=== PATIENT | female | born 1990 | race African-American/Black ===

== ENCOUNTER 2018-03-23 01:48 | Emergency (ER) | payer SELFPAY ==
--- NOTE | 2018-03-23 02:05 | PDOC ---
Medical Decision Making - Medical Decision Making 03/23/18 02:05 Richie presents to the ER intoxicated She is begging for her mother to be called Pt family members called We are awaiting mother to call back for pt pick out hand If she is unable to pick this patient up, she will have to stay in the ER until no longer intoxicated Pt seen by Midlevel Provider under my direct supervision Pt interviewed and examined I agree with plan as outlined by Midlevel Provider *DC/Admit/Observation/Transfer Diagnosis at time of Disposition: Alcohol intoxication - Discharge Dispostion Disposition: HOME Condition at time of disposition: Fair - Referrals Referrals: bJ Mosher MD [Staff Physician] - - Patient Instructions Printed Discharge Instructions: DI for Alcohol Abuse Additional Instructions: Increase fluids Take Tylenol alternating with Motrin as needed Follow-up with your physician this week Return back to the ER for any concerns - Post Discharge Activity
--- NOTE | 2018-03-23 02:07 | PDOC ---
History of Present Illness - General History Source: Patient Exam Limitations: No Limitations - History of Present Illness Initial Comments: 03/23/18 02:07 Best Contact:Griffin/brother [phone], Mother/[phone] PCP:"I don't have one" Pmhx: denies Pshx: denies Allergies: NKDA Social Hx: Cigarettes/ denies Alcohol/ [facility] Drugs/ Marijuana LMP: "Im not " 27 yo Female biba([facility]) after being intoxicated at a republican in the [place] and insists on coming here to [facility]. Patient denies fever, chills, nausea/ vomiting, headache, dizziness, lightheadedness, facial pains, neck pains, back pains, chest pain, shortness of breath, abdominal pains, flank pains, urinary symptoms, extremity numbness or tingling sensation. Patient is loud and boisterous and insists on being picked up by her brother or mother. Patient is alert and oriented. Patient refuses blood work, IV fluids. Patient states she only insisted that [facility] bring her to [facility] emergency department because she lives a couple of blocks away and it's easier for her to go home as opposed to calling a cab going to the local hospital in the [place]. Patient states she does not want treatment. She only wanted a ride closer to her home with EMS. <Rachana Ballesteros - Last Filed: 03/23/18 03:44> <Bronwyn Traylor - Last Filed: 03/23/18 12:46> - General Chief Complaint: Alcohol intoxication Stated Complaint: INTOXICATION Time Seen by Provider: 03/23/18 01:55 Past History - Past Medical History Anemia: Yes Asthma: Yes (no hx hospitalizations for asthma) Cancer: No Cardiac Disorders: No CVA: No COPD: No CHF: No Dementia: No Diabetes: No GI Disorders: No Disorders: No HTN: No Hypercholesterolemia: No Liver Disease: No Seizures: No Thyroid Disease: No - Suicide/Smoking/Psychosocial Hx Smoking History: Current every day smoker Have you smoked in the past 12 months: Yes Number of Cigarettes Smoked Daily: 5 Hx Alcohol Use: Yes Drug/Substance Use Hx: Yes <Rachana Ballesteros - Last Filed: 03/23/18 03:44> <Bronwyn Traylor - Last Filed: 03/23/18 12:46> - Past Medical History Allergies/Adverse Reactions: Allergies Allergy/AdvReac Type Severity Reaction Status Date / Time Sulfa (Sulfonamide Allergy Verified 03/23/18 11:28 Antibiotics) Home Medications: Ambulatory Orders NK [No Known Home Medication] 03/23/18 Review of Systems - Review of Systems Able to Perform ROS?: Yes Comments:: 03/23/18 02:07 CONSTITUTIONAL: Absent: fever, chills, diaphoresis, generalized weakness, malaise, loss of appetite HEENT: Absent: rhinorrhea, nasal congestion, throat pain, throat swelling, difficulty swallowing, mouth swelling, ear pain, eye pain, visual Changes CARDIOVASCULAR: Absent: chest pain, loss of consciousness, palpitations, irregular heart rate, peripheral edema RESPIRATORY: Absent: cough, shortness of breath, dyspnea with exertion, orthopnea, wheezing, stridor, hemoptysis GASTROINTESTINAL: Absent: abdominal pain, abdominal distension, nausea, vomiting, diarrhea, constipation, melena, hematochezia GENITOURINARY: Absent: dysuria, frequency, urgency, hesitancy, hematuria, flank pain, genital pain MUSCULOSKELETAL: Absent: myalgia, arthralgia, joint swelling SKIN: Absent: rash, itching, pallor HEMATOLOGIC/IMMUNOLOGIC: Absent: easy bleeding, easy bruising, lymphadenopathy, frequent infections ENDOCRINE: Absent: unexplained weight gain, unexplained weight loss, heat intolerance, cold intolerance NEUROLOGIC: Absent: headache, focal weakness or paresthesias, dizziness, unsteady gait, seizure, mental status changes, bladder or bowel incontinence PSYCHIATRIC: Absent: anxiety, depression, suicidal or homicidal ideation, hallucinations. Is the patient limited Khmer proficient: No <LesliRachana - Last Filed: 03/23/18 03:44> *Physical Exam - Physical Exam Comments: 03/23/18 02:07 GENERAL: Well developed, well nourished. Awake and alert. No acute distress. HEENT: Normocephalic, atraumatic. PERRLA, EOMI. No conjunctival pallor. Sclera are non- icteric. Moist mucous membranes. Oropharynx is clear. NECK: Supple. Full ROM. No JVD. Carotid pulses 2+ and symmetric, without bruits. No thyromegaly. No lymphadenopathy. CARDIOVASCULAR: Regular rate and rhythm. No murmurs, rubs, or gallops. Distal pulses are 2+ and symmetric. PULMONARY: No evidence of respiratory distress. Lungs clear to auscultation bilaterally. No wheezing, rales or rhonchi. ABDOMINAL: Soft. Non-tender. Non-distended. No rebound or guarding. No organomegaly. Normoactive bowel sounds. MUSCULOSKELETAL Normal range of motion at all joints. No bony deformities or tenderness. No CVA tenderness. EXTREMITIES: No cyanosis. No clubbing. No edema. No calf tenderness. SKIN: Warm and dry. Normal capillary refill. No rashes. No jaundice. NEUROLOGICAL: Alert, awake, appropriate. Cranial nerves 2-12 intact. No deficits to light touch and temperature in face, upper extremities and lower extremities. No motor deficits in the in face, upper extremities and lower extremities. Normoreflexic in the upper and lower extremities. Normal speech. Toes are down- going bilaterally. Gait is normal without ataxia. PSYCHIATRIC: Cooperative. Good eye contact. Appropriate mood and affect. <Rachana Ballesteros - Last Filed: 03/23/18 03:44> - Vital Signs Last Vital Signs Temp Pulse Resp BP Pulse Ox 97.8 F 96 H 18 109/87 100 03/23/18 01:50 03/23/18 01:50 03/23/18 01:50 03/23/18 01:50 03/23/18 01:50 <Bronwyn Traylor - Last Filed: 03/23/18 12:46> *DC/Admit/Observation/Transfer - Discharge Dispostion Decision to Admit order: No <Rachana Ballesteros - Last Filed: 03/23/18 03:44> <Bronwyn Traylor - Last Filed: 03/23/18 12:46> Diagnosis at time of Disposition: Alcohol intoxication Qualifiers: Complication of substance-induced condition: uncomplicated Qualified Code(s): F10.920 - Alcohol use, unspecified with intoxication, uncomplicated - Discharge Dispostion Disposition: HOME Condition at time of disposition: Fair - Referrals Referrals: Jb Mosher MD [Staff Physician] - - Patient Instructions Printed Discharge Instructions: DI for Alcohol Abuse Additional Instructions: Increase fluids Take Tylenol alternating with Motrin as needed Follow-up with your physician this week Return back to the ER for any concerns
[2018-03-23 02:35] VITALS: BP 109/87; PULSE 96; TEMP 97.8; BMI 29.2
== END 2018-03-23 03:49 | disposition home or self-care (01) ==
LOC: JER 01:48
DX: F10.120 Alcohol abuse with intoxication, uncomplicated (principal); Y90.9 Presence of alcohol in blood, level not specified; J45.909 Unspecified asthma, uncomplicated; F17.210 Nicotine dependence, cigarettes, uncomplicated; Z88.2 Allergy status to sulfonamides
CPT/HCPCS: 99283-25

== ENCOUNTER 2018-03-23 11:13 | Emergency (ER) | payer SELFPAY ==
[2018-03-23 11:28] VITALS: BP 107/71; PULSE 86; TEMP 98; BMI 25.9
--- NOTE | 2018-03-23 12:35 | PDOC ---
History of Present Illness - General Chief Complaint: Pain Stated Complaint: PAIN Time Seen by Provider: 03/23/18 12:19 History Source: Patient Exam Limitations: No Limitations - History of Present Illness Initial Comments: 03/23/18 12:30 States was drinking yesterday excessively, was brought to this emergency department early in the morning and was discharged with alcohol intoxication. Her fianc picked her up [place] home, but woke up this morning with shoulder pain. And has little memory of incident , uncertain assist to fell, but woke up this morning with significant left shoulder pain. States is able to move arm but is very painful primarily at shoulder capsule. Has no arm pain, no neck pain , no other known bruises but states left side is painful primarily her shoulder. Denies knowledge of head injury they is with patient reports her behavior although mildly intoxicated residual from last night appears to be normal. Per fianc, apparently patient has drinking issues, and although does not drink daily has excessive binge drinking with violent/belligerent behavior. 03/23/18 12:47 Occurred: reports: yesterday Severity: reports: moderate Pain Location: reports: upper extremity (left shoulder ) Method of Injury: Yes: fall Modifying Factors: improves with: None Loss of Consciousness: unsure Past History - Travel Traveled outside of the country in the last 30 days: No Close contact w/someone who was outside of country & ill: No - Past Medical History Allergies/Adverse Reactions: Allergies Allergy/AdvReac Type Severity Reaction Status Date / Time Sulfa (Sulfonamide Allergy Verified 03/23/18 11:28 Antibiotics) Home Medications: Ambulatory Orders NK [No Known Home Medication] 03/23/18 Anemia: Yes Asthma: Yes (no hx hospitalizations for asthma) Cancer: No Cardiac Disorders: No CVA: No COPD: No CHF: No Dementia: No Diabetes: No GI Disorders: No Disorders: No HTN: No Hypercholesterolemia: No Liver Disease: No Seizures: No Thyroid Disease: No - Suicide/Smoking/Psychosocial Hx Smoking History: Current every day smoker Have you smoked in the past 12 months: Yes Number of Cigarettes Smoked Daily: 5 Information on smoking cessation initiated: No Hx Alcohol Use: Yes Drug/Substance Use Hx: Yes Substance Use Type: Alcohol, Marijuana Review of Systems - Review of Systems Able to Perform ROS?: Yes Is the patient limited Ethiopian proficient: Yes Constitutional: Yes: Symptoms Reported, See HPI, Malaise. No: Fever HEENTM: Yes: See HPI. No: Symptoms Reported Respiratory: Yes: See HPI. No: Symptoms reported, Cough Cardiac (ROS): No: Symptoms Reported ABD/GI: Yes: Symptoms Reported, Nausea Musculoskeletal: Yes: Symptoms Reported, See HPI, Joint Pain, Joint Swelling, Muscle Pain Integumentary: Yes: Symptoms Reported, Bruising Neurological: Yes: Symptoms reported, See HPI All Other Systems: Reviewed and Negative (to left shoulder) *Physical Exam - Vital Signs Last Vital Signs Temp Pulse Resp BP Pulse Ox 98 F 86 18 107/71 99 03/23/18 11:24 03/23/18 11:24 03/23/18 11:24 03/23/18 11:24 03/23/18 11:24 - Physical Exam General Appearance: Yes: Appropriately Dressed, Apparent Distress, Mild Distress , Moderate Distress, Alcohol on Breath, Intoxicated HEENT: positive: NIKHIL, Normal ENT Inspection, TMs Normal, Pharynx Normal Neck: positive: Supple. negative: Tender, Tender midline Respiratory/Chest: positive: Lungs Clear Gastrointestinal/Abdominal: positive: Normal Bowel Sounds, Soft Musculoskeletal: positive: Decreased Range of Motion (patient has limited range of motion including abduction and forward flexion to approximately 90. States pain is reproduced along the humeral head area and shoulder capsule. Neurovascular intact to hand, no pain with elbow or wrist movement. Strong grasp ). negative: Normal Inspection Extremity: positive: Normal Capillary Refill, Tender (to upper humeral head area ), Swelling. negative: Normal Inspection (mild swelling,), Normal Range of Motion Integumentary: positive: Normal Color, Warm. 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 We'll treat for left shoulder strain and encourage alcohol detox *DC/Admit/Observation/Transfer Diagnosis at time of Disposition: Left shoulder strain Qualifiers: Encounter type: initial encounter Qualified Code(s): S46.912A - Strain of unspecified muscle, fascia and tendon at shoulder and upper arm level, left arm , initial encounter - Discharge Dispostion Disposition: HOME Condition at time of disposition: Stable Decision to Admit order: No - Referrals Referrals: Jesus,Marquis I, MD [Staff Physician] - - Patient Instructions Printed Discharge Instructions: DI for Contusion Additional Instructions: Rest, ice to area on and off for 15 minutes 4-6 times a day Avoid heavy lifting or exercise until pain and swelling is resolved or until further directed Keep area highly elevated to reduce swelling Use splints/Miguel wrap as directed Followup with orthopedist in one to 2 days if not improving, if significantly improved may wait one week for followup with orthopedist May use ibuprofen 2-200 mg tablets every 6 hours as needed for pain - Post Discharge Activity
[2018-03-23 12:52] LABS: URINE APPEARANCE CLEAR; URINE BILIRUBIN NEGATIVE (<2.0 mg/dL); URINE COLOR YELLOW; URINE GLUCOSE (UA) NEGATIVE (NEGATIVE); URINE KETONE NEGATIVE (NEGATIVE); URINE LEUK ESTERASE NEGATIVE (NEGATIVE); URINE NITRITE NEGATIVE (NEGATIVE); URINE PROTEIN 1+ (NEGATIVE); URINE UROBILINOGEN NEGATIVE mg/dL (0.2-1.0)
[2018-03-23 12:56] LABS: HCG,QUALITATIVE URINE Negative
[2018-03-23 12:57] LABS: EPI CELLS RARE /HPF (FEW); URINE BACTERIA RARE /hpf (NONE SEEN); URINE MUCUS FEW
[2018-03-23] MEDS ORDERED: IBUPROFEN 400 MG TABLET (FP) PO ONE ×2 (13:11→13:14)
== END 2018-03-23 14:02 | disposition home or self-care (01) ==
LOC: JERFT 11:13
DX: S46.812A Strain of other muscles, fascia and tendons at shoulder and upper arm level, left arm, initial encounter (principal); W19.XXXA Unspecified fall, initial encounter; Y93.89 Activity, other specified; Y92.89 Other specified places as the place of occurrence of the external cause; Y99.8 Other external cause status; J45.909 Unspecified asthma, uncomplicated; Z86.2 Personal history of diseases of the blood and blood-forming organs and certain disorders involving the immune mechanism; F17.210 Nicotine dependence, cigarettes, uncomplicated
CPT/HCPCS: 73030-TC-LT-FY; 81003; 81015; 84703; 99281-25

== ENCOUNTER 2024-05-29 09:11 | Inpatient (IN) | payer OTHER ==
[2024-05-29] MEDS: LACTATED RINGERS SOLUTION 1,000 ML/1,000 ML INFUS.BAG IV SCH (11:00)
[2024-05-29 12:01] LABS: BASO % 0.2 % (0-2.0); EOS % 0.7 % (0-4.5); HEMATOCRIT 31.4 % (32.4-45.2); HEMOGLOBIN 10.5 GM/dL (10.7-15.3); LYMPH % 16.4 % (8-40); MCH 29.2 pg (25.7-33.7); MCHC 33.5 g/dl (32.0-36.0); MEAN CELL VOLUME 87.2 fl (80-96); MEAN PLT VOLUME 8.6 fl (7.5-11.1); MONO % 7.6 % (3.8-10.2); NEUT % 75.1 % (42.8-82.8); PLATELET COUNT 131 10^3/uL (134-434); RBC 3.61 M/mm3 (3.60-5.2); RDW 13.2 % (11.6-15.6); WHITE BLOOD COUNT 8.2 K/mm3 (4.0-10.0)
[2024-05-29 12:08] LABS: INR 0.87 (0.83-1.09); PROTHROMBIN TIME (PATIENT) 10.1 SEC (9.7-13.0)
[2024-05-29 12:10] LABS: ACTIVATED PTT 51.5 SECONDS (25.2-36.5)
[2024-05-29] MEDS: DINOPROSTONE 10 MG VAGINAL SUPPOSITORY VG ONE (12:31)
[2024-05-29 12:34] VITALS: BMI 29.0
[2024-05-29 12:35] LABS: POTASSIUM 3.7 mmol/L (3.5-5.1)
[2024-05-29 12:38] LABS: CALCIUM 8.6 mg/dL (8.5-10.1)
[2024-05-29 12:39] LABS: BLOOD UREA NITROGEN 6.3 mg/dL (7-18)
[2024-05-29 12:42] LABS: CREATININE 0.5 mg/dL (0.55-1.3)
[2024-05-30] MEDS ORDERED: OXYTOCIN 30 UNITS in 0.9% NS 30 UNIT/500 ML INFUS.BAG IVPB ONE ×2 (01:26→20:14)
[2024-05-30] MEDS: OXYTOCIN 30 UNITS in 0.9% NS 30 UNIT/500 ML INFUS.BAG IVPB SCH (01:30)
[2024-05-30] MEDS: BUTORPHANOL TARTRATE 1 MG/ML VIAL IVPB SCH (05:57)
[2024-05-30] MEDS: PROMETHAZINE HCL 25 MG/1 ML VIAL IVPB ONE ×2 (17:38→23:37)
[2024-05-30] MEDS: CITRIC ACID/SODIUM CITRATE 30 ML UNIT-DOSE CUP PO ONE (19:20)
[2024-05-30] MEDS ORDERED: BUTORPHANOL TARTRATE 2 MG/ML VIAL ONE (23:36)
[2024-05-31] MEDS: LACTATED RINGERS SOLUTION 1,000 ML/1,000 ML INFUS.BAG IV SCH (01:00)
[2024-05-31] MEDS ORDERED: OXYTOCIN 20 UNITS in 0.9% NS 20 UNIT/1,000 ML INFUS.BAG IV ONE (02:35)
[2024-05-31] MEDS ORDERED: LIDOCAINE HCL 1% PRESERVATIVE FREE - 30ML VIAL ONE (02:37)
[2024-05-31] MEDS: OXYTOCIN 20 UNITS in 0.9% NS 20 UNIT/1,000 ML INFUS.BAG IV SCH (03:10)
[2024-05-31] MEDS ORDERED: WITCH HAZEL 50% (TUCKS) 40 PAD/JAR PAD TP PRN (03:18)
[2024-05-31] MEDS ORDERED: BISACODYL 10 MG SUPP.RECT RC PRN (03:18)
[2024-05-31] MEDS ORDERED: METHYLERGONOVINE MALEATE 0.2 MG/1 ML AMP IM PRN (03:18)
[2024-05-31] MEDS ORDERED: BENZOCAINE 28 GM HEMORRHOIDAL OINTMENT TP PRN (03:18)
[2024-05-31] MEDS ORDERED: BENZOCAINE 20% 57 GM BOTTLE TP PRN (03:18)
[2024-05-31] MEDS: IBUPROFEN 600 MG TABLET (FP) PO PRN (06:33)
[2024-05-31] MEDS: FERROUS SO4 325 MG TABLET (FP) PO SCH (09:11)
[2024-05-31] MEDS: ACETAMINOPHEN 325 MG TABLET (FP) PO PRN (09:11)
[2024-05-31] MEDS: PRENATAL VITAMINS W/ FOLIC ACID TABLET (FP) PO SCH (09:11)
[2024-05-31 11:55] LABS: SYPHILIS W/ RPR CONF REACTIVE (NONREACTIVE)
[2024-05-31 12:15] LABS: HIV INTERPRETATION NEGATIVE (NEGATIVE)
[2024-06-01 07:34] LABS: BASO % 0.2 % (0-2.0); EOS % 0.9 % (0-4.5); HEMATOCRIT 24.8 % (32.4-45.2); HEMOGLOBIN 8.4 GM/dL (10.7-15.3); LYMPH % 22.7 % (8-40); MCH 29.5 pg (25.7-33.7); MCHC 34.1 g/dl (32.0-36.0); MEAN CELL VOLUME 86.5 fl (80-96); MEAN PLT VOLUME 9.4 fl (7.5-11.1); MONO % 7.5 % (3.8-10.2); NEUT % 68.7 % (42.8-82.8); PLATELET COUNT 141 10^3/uL (134-434); RBC 2.86 M/mm3 (3.60-5.2); RDW 13.1 % (11.6-15.6); WHITE BLOOD COUNT 10.4 K/mm3 (4.0-10.0)
[2024-06-01 10:01] VITALS: RESP 17
[2024-06-01] MEDS: PENICILLIN G BENZATHINE 2,400,000 UNIT/4 ML PFS IM ONE (13:28)
[2024-06-01] MEDS ORDERED: SENNOSIDES/DOCUSATE COMBO (SENNA PLUS) TABLET (UD) PO PRN (22:00)
[2024-06-02 09:31] VITALS: BP 113/71; PULSE 82; TEMP 98
== END 2024-06-02 14:05 | disposition home or self-care (01) | DRG 560 ==
LOC: JDEL 09:11 → JLDR 11:10 → J3W 05-31 05:48
PROVIDERS: ADMIT Obstetrics & Gynecology; ATTEND Obstetrics & Gynecology
PROC: 3E0P7VZ Introduction of Hormone into Female Reproductive, Via Natural or Artificial Opening (ICD-10-PCS; principal; 2024-05-29)
PROC: 10E0XZZ Delivery of Products of Conception, External Approach (ICD-10-PCS; 2024-05-31)
PROC: 0HQ9XZZ Repair Perineum Skin, External Approach (ICD-10-PCS; 2024-05-31)
DX: O70.0 First degree perineal laceration during delivery (principal); O98.12 Syphilis complicating childbirth; A53.9 Syphilis, unspecified; O98.82 Other maternal infectious and parasitic diseases complicating childbirth; A74.9 Chlamydial infection, unspecified; Z3A.38 38 weeks gestation of pregnancy; Z37.0 Single live birth
CPT/HCPCS: 36415; 59025; 59409; 80048; 85025; 85610; 85730; 86593; 86780; 86850; 86900; 86901; 87389